=== PATIENT | male | born 1985 | race Two or more races ===

== ENCOUNTER 2024-09-29 06:35 | Emergency (ER) | payer OTHER ==
[~2024-09-29] VITALS: Ht 177.8 cm; Wt 90.7 kg
[~2024-09-29 06:35] MED LIST: OME20GT
[2024-09-29 06:44] VITALS: TEMP 98.6
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
[2024-09-29 08:37] VITALS: BP 133/88; PULSE 79; RESP 16; O2SAT 94
[2024-09-29] MEDS: ACETAMINOPHEN IV 1000 MG/100ML (10MG/ML) IV STA (08:47)
== END 2024-09-29 09:18 | disposition home or self-care (01) ==
LOC: EDBD 06:35 → ER 06:35 → EDUNIT# 06:35 → ER 09:18
DX: T14.8XXA Other injury of unspecified body region, initial encounter (principal); Z79.899 Other long term (current) drug therapy; V89.2XXA Person injured in unspecified motor-vehicle accident, traffic, initial encounter; Y93.89 Activity, other specified; Y92.89 Other specified places as the place of occurrence of the external cause; Y99.8 Other external cause status
CPT/HCPCS: 70450; 71045; 72100; 72125; 72170; 73562; 73610; 96374; J0131